=== PATIENT | male | born 1990 | race Caucasian/White ===

== ENCOUNTER 2018-05-05 14:19 | Emergency (ER) | payer BC ==
[2018-05-05] MEDS ORDERED: Fentanyl 100 MCG/2 ML VIAL ONE (15:17)
[2018-05-05] MEDS ORDERED: Lorazepam 2 MG/ML VIAL ONE (15:17)
[2018-05-05] MEDS ORDERED: Ketorolac Tromethamine 30 MG/ML VIAL ONE (15:17)
[2018-05-05 15:21] LABS: #Basophils 0.1 thou/uL (0.0-0.2); #Eosinphils 0.1 thou/uL (0.0-0.7); #Lymphocytes 2.6 thou/uL (1.20-3.40); #Monocytes 0.9 thou/uL (0.11-0.59); #Neutrophils 5.7 thou/uL (1.40-6.50); %Basophils 0.8 % (0.0-1.0); %Eosinophils 0.6 % (0.0-10.0); %Lymphocytes 27.7 % (21.0-51.0); %Neutrophils 60.9 % (42.0-75.0); Hemoglobin 16.5 g/dL (14.0-18.0); Mean Corpuscular HGB CONC 35.3 g/dL (32.0-36.0); Mean Corpuscular Hemoglobin 33.3 pg (27.0-31.0); Mean Corpuscular Volume 94.3 fl (80.0-94.0); Platelet Count 207 thou/uL (130-400); RBC Distribution Width 11.8 % (11.5-14.5); Red Blood Cell (RBC) Count 4.94 mill/uL (4.70-6.10); White Blood Cell (WBC) Count 9.3 thou/uL (4.8-10.8)
[2018-05-05 15:44] LABS: ALT (SGPT) 33 U/L (8-55); AST (SGOT) 24 U/L (5-34); Albumin 4.3 g/dL (3.5-5.0); Alkaline Phosphatase 60 U/L (40-150); Anion Gap 12 mmol/L (10-20); BUN (Urea Nitrogen) 16 mg/dL (8.9-20.6); CK (CPK) 138 U/L (30-200); Calc. Creatinine Clearance 0 mL/min (70-130); Calcium 9.5 mg/dL (7.8-10.44); Carbon Dioxide 26 mmol/L (22-29); Chloride 104 mmol/L (98-107); Estimated GFR-MDRD 71; Globulin 2.9 g/dL (2.4-3.5); Glucose 96 mg/dL (70-105); Lipase 16 U/L (8-78); Potassium 3.9 mmol/L (3.5-5.1); Protein, Total 7.2 g/dL (6.0-8.3); Sodium 138 mmol/L (136-145)
[2018-05-05 15:48] LABS: CKMB 0.8 ng/mL (0-6.6); Troponin I Less than 0.010 ng/mL (< 0.028)
--- NOTE | 2018-05-05 16:10 | RAD ---
PORTABLE CHEST: 05/05/18 HISTORY: Dyspnea. Right sided rib pain. Heart size is within normal limits for portable technique. Mediastinal structures appear unremarkable . The lungs are clear of infiltrates. No bony abnormalities. IMPRESSION: No active intrathoracic disease. POS: [facility]
--- NOTE | 2018-05-05 17:04 | CT ---
CT ANGIO OF CHEST PERFORMED WITH INTRAVENOUS CONTRAST ENHANCEMENT WITH 3D RECONSTRUCTIONS: 05/05/18 HISTORY: Right sided chest pain radiating to upper back. Lungs are clear of any confluent infiltrative process. There are subsegmental atelectatic changes in the lung bases. There is no significant mediastinal or hilar or axillary adenopathy. The thoracic aorta is normal in caliber. There is good pulmonary artery opacification, there is no CT evidence for pulmonary embolus. The visualized liver parenchyma shows no focal findings. I do not appreciate any evidence for any rib fractures. IMPRESSION: No CT evidence for pulmonary embolus. POS: [facility]
--- NOTE | 2018-05-23 15:43 | EKG ---
Test Reason : Blood Pressure : / mmHG Vent. Rate : 067 BPM Atrial Rate : 067 BPM P-R Int : 132 ms QRS Dur : 084 ms QT Int : 394 ms P-R-T Axes : 040 059 015 degrees QTc Int : 416 ms Normal sinus rhythm Normal ECG Confirmed by VINCENZO BEST, PARAM ([id number]), fan mail editor SHANTEL SEVILLA ([id number]) on 05/23/2018 3:43:08 PM Referred By: Confirmed By:PARAM LOYA MD
== END 2018-05-05 17:12 | disposition home or self-care (01) ==
LOC: ERS 14:19
DX: M54.6 Pain in thoracic spine (principal); Z79.899 Other long term (current) drug therapy
CPT/HCPCS: 71045; 71275; 80053; 82553; 83690; 84484; 85025; 85379; 93005; 96374; 96375; J1885; J2060; J3010